=== PATIENT | male | born 1965 | race Caucasian/White ===

== ENCOUNTER 2019-04-15 05:09 | Inpatient (IN) | payer SELFPAY ==
[~2019-04-15] VITALS: Ht 170.2 cm; Wt 108.9 kg
[2019-04-15] VITALS (19 sets, daily range): BP systolic 98–160; BP diastolic 63–99; BMI 37.7
--- NOTE | ~2019-04-15 | HEMODYNAMI ---
PATIENT:SANTIAGO DALAL MEDICAL RECORD: [id number] : 67 LOCATION:[facility] ADMISSION DATE: 04/15/19 Generatedon:04/15/20199:15 Patient name: SANTIAGO DALAL Patient #: [id number] SSN: : 1965 Date of study: 04/15/2019 Page: Of Hemodynamic Procedure Report Patient Data Patient Demographics Procedure consent was obtained First Name: SANTIAGO Gender: Male Last Name: MULUGETA : 1965 Patient #: [id number] Age: 53 year(s) Race: Unknown Additional ID: [id number] Contact details [address]: [address] [place] [address] State: [place] City: [place] Zip code: [address] Past Medical History Allergies Allergen Reaction Date Comments Reported Penicillins 04/15/2019 Admission Admission Data Admission Date: 04/15/2019 Admission Time: 5:09 Admit Source: Emergency Insurance Payor: None department Height (in.): 67 BSA: 2.19 (m2) Height (cm.): 170.18 BMI: 37.67 (kg/m2) Weight (lbs.): 240.5 Weight (kg.): 109.09 Lab Results Lab Result Date: 04/15/2019 Lab Result Time: 0:00 Biochemistry Name Units Result Min Max BUN mg/dl 15 --(--*-)-- 7 18 Creatinine mg/dl 0.7 --(*---)-- 0.6 1.3 Troponin l ng/ml 1.301 --(----)-* 0 0.06 CBC Name Units Result Min Max Hematocrit % 47.4 --(-*--)-- 42 54 Hemoglobin g/dl 16.7 --(---*)-- 13.5 17.5 Platelets 10^3/l 258 --(-*--)-- 130 400 Procedure Procedure Types Cath Procedure Diagnostic Procedure [facility] w/Coronaries Sedation Charges Moderate Sedation up to 15 minutes PCI Procedure Coronary Stent Coronary Stent Initial Procedure Description Procedure Date Procedure Date: 04/15/2019 Procedure Start Time: 7:58 Procedure End Time: 9:14 Procedure Staff Name Function Quoc Birmingham MD Performing Physician Bella Gandhi RT Monitor January Sandoval RN Nurse Christy Rosa RT Scrub Procedure Data Cath Procedure Fluoroscopy Diagnostic fluoroscopy Total fluoroscopy Time: 4.1 time: 4.1 min min Diagnostic fluoroscopy Total fluoroscopy dose: dose: 1144 mGy 1144 mGy Contrast Material Contrast Material Type Amount (ml) Isovue 300 121 Entry Location Entry Primary Successful Side Size Upsize Upsize Entry Closure Succes sful Closure Location (Fr) 1 (Fr) 2 (Fr) Remarks Device Remarks Femoral Right 5 Fr 6 Fr Exoseal artery Short Estimated blood loss: 5 ml Diagnostic catheters Device Type Used For End Catheter Placement MULTIPACK JL 4.0 5Fr Left Coronary catheter Angiography MULTIPACK 3DRC 5Fr Right Coronary catheter Angiography MULTIPACK Pigtail 5 Fr Multi-vessel catheter Angiography Procedure Complications No complications Procedure Medications Medication Administration Route Dosage Oxygen etCO2 Nasal cannula 2 l/min Lidocaine 2% added to field 20 Heparin Flush Bag added to field 2 bags (1000units/500ml NS) 0.9% NaCl I.V. 100 ml/hr Versed I.V. 2 mg Fentanyl I.V. 100 mcg Versed I.V. 2 mg Heparin Bolus I.V. 54891 units Nitroglycerin IC/IA I.C. 100 mcg Integrilin (Bolus I.V. 9.5 ml 2mg/ml) Effient P.O. 60 mg Hemodynamics Rest BSA: 2.19 (m2) HGB: 16.7 (g/dl) O2 Consumption: Estimated: 272.14 (ml/min) O2 Co nsumption indexed: Estimated:124.26 (ml/min/m) Heart Rate: 84 (bpm) Pressure Samples Time Site Value (mmHg) Purpose Heart Use Rate(bpm) 8:03 AO 192/54(98) Snapshot 104 8:03 LV 214/72,70 Snapshot 110 8:04 AO 175/116(145) Pullback 109 8:04 LV 179/20,42 Pullback 109 Gradients Valve Time Site 1 Site 2 Mean SEP/DFP Peak To Heart Use (mmHg) (sec/min) Peak Rate (mmHg) (bpm) Aortic 8:04 LV AO 13 23 4 109 179/20,42 175/116(145) Calculations Valve P-P Mean Valve Index Valve Source Name Gradient Area Flow (cm2) Aortic 4 13 4 13 Snapshots Pre Cath Intra NCS Post Cath Vital Signs Time Heart Resp SPO2 etCO2 NIBP (mmHg) Rhythm Pain Status Sedation Rate (ipm) (%) (mmHg) Level (bpm) 7:47:44 85 18 96 0 149/127(133) NSR 10 (11) , 10(A) Unimaginable unspeakable 7:52:07 95 17 94 44.9 145/107(128) NSR 10 (11) , 10(A) Unimaginable unspeakable 7:56:27 97 13 97 47.9 135/107(113) NSR 10 (11) , 10(A) Unimaginable unspeakable 8:00:45 99 13 99 51 146/92(128) NSR 0 (11) , No 9(A) pain 8:05:05 104 17 100 50.9 159/114(128) NSR 0 (11) , No 9(A) pain 8:09:27 111 18 97 0 159/115(123) NSR 0 (11) , No 9(A) pain 8:13:53 110 20 94 0 132/91(117) NSR 0 (11) , No 9(A) pain 8:18:11 116 23 93 0 134/88(111) NSR 0 (11) , No 9(A) pain 8:22:29 116 16 93 2.2 129/80(108) NSR 0 (11) , No 10(A) pain 8:32:09 112 22 91 14.2 117/77(96) NSR 0 (11) , No 10(A) pain 8:48:22 107 19 93 51.7 123/70(103) NSR 0 (11) , No 10(A) pain 8:58:57 105 17 93 42.5 118/75(83) NSR 0 (11) , No 10(A) pain Medications Time Medication Route Dose Verified Delivered Reason Notes Effectiveness by by 7:52:35 Oxygen etCO2 2 Quoc Buffie used for Nasal l/min Kendall Sandoval salt washer cannula 7:52:41 Lidocaine 2% added 20ml Quoc Quoc for local to vial Kendall Birmingham MD anesthetic field 7:52:47 Heparin Flush added 2 bags Quoc Quoc used for Bag to Kendall Birmingham MD procedure (1000units/500ml field NS) 7:52:55 0.9% NaCl I.V. 100 Quoc Quoc ml/hr Kendall Birmingham MD 7:57:04 Versed I.V. 2 mg Quoc Buffie for sedation Kendall Sandoval RN 7:57:10 Fentanyl I.V. 100 Quoc Buffie for sedation mcg Kendall Sandoval RN 8:05:43 Versed I.V. 2 mg Quoc Buffie for sedation Kendall Sandoval RN 8:08:08 Heparin Bolus I.V. 10,000 Quoc Buffie for verif ied units Kendall Sandoval RN anticoagulation with dr birmingham 8:16:41 Nitroglycerin I.C. 100 Quoc Quoc for IC/IA mcg Kendall Birmingham MD vasodilation 8:21:28 Integrilin I.V. 9.5 ml Quoc Buffie for waste d (Bolus 2mg/ml) Kendall Sandoval RN antiplatelet 0.5 ml therapy of vial 8:28:11 Effient P.O. 60 mg Quoc Buffie for Kendall Sandoval RN antiplatelet therapy Procedure Log Time Note 7:26:57 Time tracking: Regular hours (M-F 7:00 - 5:00) 7:27:01 Plan of Care:Hemodynamics will remain stable., Cardiac rhythm will remain stable., Comfort level will be maintained., Respiratory function will remain adequate., Patient/ family verbilizes understanding of procedure., Procedure tolerated without complication., Recovers from procedure without complications.. 7:30:15 January Sandoval RN sent for patient. Start room use. 7:34:14 Patient allergic to Penicillins 7:35:50 Lab Result : Troponin l 1.301 ng/ml 7:35:50 Lab Result : Hemoglobin 16.7 g/dl 7:35:50 Lab Result : BUN 15 mg/dl 7:35:50 Lab Result : Creatinine 0.7 mg/dl 7:35:50 Lab Result : Hematocrit 47.4 % 7:35:50 Lab Result : Platelets 258 10^3/l 7:35:56 Admit Source: Emergency department 7:36:01 Patient Height : 67 inches 7:36:06 Patient Weight : 240.5 lbs 7:36:54 Insurance Payor : None 7:41:03 Patient received from ED to CCL 1 Alert and oriented. Tansferred to table in Supine position. 7:41:04 Warm blankets applied, and dax hugger turned on for patient comfort. 7:41:05 Correct patient and procedure confirmed by team. 7:41:06 Signed procedure consent form obtained from patient. 7:41:06 ECG and BP/O2 sat monitors applied to patient. 7:41:07 Full Disclosure recording started 7:46:27 Vital chart was started 7:47:48 Baseline sample Acquired. 7:47:54 Rhythm: sinus rhythm 7:48:02 H&P Date Dictated: 04/15/2019 New H&P dictated by physician.. 7:48:04 Pre-procedure instructions explained to patient. 7:48:04 Pre-op teaching completed and patient verbalized understanding. 7:48:05 Family in waiting room. 7:48:07 Patient NPO since Midnight. 7:48:10 Is the patient allergic to Iodine/contrast media? No. 7:48:11 Was the patient premedicated? No 7:48:12 Is patient on blood thinner?No 7:48:19 Patient diabetic? No. 7:48:26 Previous problem with sedation/anesthesia? No ? 7:48:30 Snore? Yes 7:48:31 Sleep apnea? No 7:48:32 Deviated septum? No 7:48:33 Opens mouth fully? Yes 7:48:34 Sticks out tongue? Yes 7:48:43 Airway obstruction? Yes asthma 7:48:47 Dentures? No ? 7:48:53 Pre procedure: right dorsailis pedis pulse 2+ Normal; easily identifiable; not easily obliterated 7:48:57 Pre procedure: left dorsailis pedis pulse 2+ Normal; easily identifiable; not easily obliterated 7:48:59 Patient pain scale 0/10 ?. 7:52:35 Oxygen 2 l/min etCO2 Nasal cannula was administered by January Sandoval RN; used for procedure; 7:52:41 Lidocaine 2% 20ml vial added to field was administered by Quoc Birmingham MD; for local anesthetic; 7:52:47 Heparin Flush Bag (1000units/500ml NS) 2 bags added to field was administered by Quoc Birmingham MD; used for procedure; 7:52:55 0.9% NaCl 100 ml/hr I.V. was administered by Quoc Birmingham MD; ; 7:52:58 IV patent on arrival in left forearm with 0.9% NaCl at O. 7:53:01 Lab results completed and on chart. 7:53:06 Right groin area was prepped with chlora-prep and draped in sterile fashion 7:53:07 Alarms reviewed by R. N. 7:53:07 Sharps counted by scrub and verified by R.N. 7:53:09 Physician arrived 7:53:10 --------ALL STOP TIME OUT------ 7:53:11 Final Timeout: patient, procedure, and site verified with staff and physician. All members of the team are in agreement. 7:53:13 Right groin site verified by team. 7:53:16 Maximum allowable Isovue 300 dose 300ml. Physician notified. (300ml for normal creatinines. For patients with creatinine of 1.7 or higher multiply weight(kg) x 5 divided by creatinine.) 7:53:20 Fire Safety Assessment: A--An alcohol-based skin anteseptic being used preoperatively., C--Open oxygen or nitrous oxide is being used., D--An ESU, laser, or fiber-optic light is being used. 7:53:23 Physical assessment completed. ASA score P 2 - A patient with mild systemic disease as per Quoc Birmingham MD. 7:53:28 Sedation plan: IV Moderate Sedation Medication:Versed, Fentanyl 7:55:10 Use device set Femoral Dx 7:55:11 ACIST Syringe (63396) opened to sterile field. 7:55:12 Bag Decanter (2002) opened to sterile field. 7:55:12 Medline Cath Pack ([id number]) opened to sterile field. 7:55:13 DIAGNOSTIC WIRE .035 260cm J wire (615732) opened to sterile field. 7:55:48 ACIST Hand Control (26801) opened to sterile field. 7:55:48 ACIST Manifold (94797) opened to sterile field. 7:55:49 DIAGNOSTIC Multipack 5Fr catheter set (HV7060) opened to sterile field. 7:55:49 Tegaderm 4 x 4 (1626W) opened to sterile field. 7:55:52 SHEATH 5FR Jesse (SAA456) opened to sterile field. 7:57:04 Versed 2 mg I.V. was administered by January Sandoval RN; for sedation; 7:57:10 Fentanyl 100 mcg I.V. was administered by January Sandoval RN; for sedation; 7:58:30 Procedure started. 7:58:34 Local anesthetic to right femoral artery with Lidocaine 2% by Quoc Birmingham MD.INITIAL ACCESS ONLY 8:00:28 A 5 Fr sheath was inserted into the Right Femoral artery 8:00:36 A MULTIPACK JL 4.0 5Fr catheter was advanced over the wire and used for Left Coronary Angiography. 8:00:52 LCA angiography performed. 8:00:58 Injector settings: Ml/sec: 3, Volume: 6, 8:01:02 Catheter removed. 8:01:07 A MULTIPACK 3DRC 5Fr catheter was advanced over the wire and used for Right Coronary Angiography. 8:01:44 GUIDE 6FR XBLAD 3.5 catheter ([id number]) opened to sterile field. 8:01:45 TUBING High Pressure Extension Tubing (Kendall) ([id number]) opened to sterile field. 8:01:46 BMW 300cm [place] 2 J wire ([id number]) opened to sterile field. 8:01:47 INFLATOR Merit BasixCompak (DO9051) opened to sterile field. 8:01:47 SHEATH 6FR Jesse (MIB933) opened to sterile field. 8:02:08 RCA angiography performed. 8:02:10 Injector settings: Ml/sec: 3, Volume: 6, 8:02:15 Catheter removed. 8:03:49 A MULTIPACK Pigtail 5 Fr catheter was advanced over the wire and used for Multi-vessel Angiography. 8:03:58 LV hemodynamics recorded. 8:03:59 LV gram done using SINHA 8:04:02 Injector settings: Ml/sec: 5, Volume: 15, 8:04:09 EF : 55 % 8:04:11 Catheter removed. 8:04:18 Proceeding to intervention. 8:04:24 Sheath upsized to a 6 Fr Short. 8:04:42 6 Fr xblad 3.5 guide catheter was inserted over the wire 8:04:52 bmw wire advanced. 8:05:40 DIAGNOSTIC WIRE .035 260cm J wire (107425) opened to sterile field. 8:05:43 Versed 2 mg I.V. was administered by January Sandoval RN; for sedation; 8:08:08 Heparin Bolus 10,000 units I.V. was administered by January Sandoval RN; for anticoagulation; verified with dr birmingham 8:08:55 Wire advanced across lesion. 8:11:30 Inflate balloon Inflation number: 1 A EUPHORA 2.5 x 20 Balloon ([id number]) was prepped and advanced across the Prox LAD, then inflated to 12 CONCETTA for 0:10 (min:sec). 8:13:01 Balloon removed over the wire. 8:15:05 Place stent Inflation Number: 2 A COBRA RX 3.0 X 18 Stent was prepped and advanced across the Prox LAD. The stent was deployed at 13 CONCETTA for 0:10 (min:sec). 8:16:15 Stent catheter was removed intact over wire. 8:16:41 Nitroglycerin IC/IA 100 mcg I.C. was administered by Quoc Birmingham MD; for vasodilation; 8:20:05 Wire removed. 8:20:06 Guide catheter removed. 8:20:27 Sheath removed intact; hemostasis achieved with Exoseal to the Right Femoral artery. 8:20:31 Procedure ended.(Physican Out) 8:20:45 EXOSEAL 6Fr (EX600) opened to sterile field. 8:21:00 Fluoroscopy time 04.10 minutes. 8:21:06 Fluoroscopy dose: 1144 mGy 8:21:06 Flurop Dose total: 1144 8:21:26 Contrast amount:Isovue 300 121ml. 8:21:27 Sharps counted by scrub and verified by R.N. 8:21:28 Integrilin (Bolus 2mg/ml) 9.5 ml I.V. was administered by January Sandoval RN; for antiplatelet therapy; wasted 0.5 ml of vial 8:21:32 Insertion/operative site no bleeding no hematoma. 8:21:35 Post-op/insertion site Right Femoral artery dressed using a 4 x 4 and Tegaderm. 8:21:36 Post Procedure Pulses reassessed and unchanged 8:21:39 Post procedure rhythm: unchanged. 8:21:43 Estimated blood loss: 5 ml 8:21:59 Post procedure instruction explained to patient.Patient verbalizes understanding. 8:21:59 Patient needs reinforcement of post procedure teaching. 8:22:53 Procedure type changed to Cath procedure, Diagnostic procedure, LHC, LHC w/Coronaries, Sedation Charges, Moderate Sedation up to 15 minutes, PCI procedure, Coronary Stent, Coronary Stent Initial 8:22:54 Procedure and supply charges have been captured, reviewed, submitted and are correct. 8::59 Procedure Complication : No complications 8:23:01 Vital chart was stopped 8:23:01 See physician's report for complete and final results. 8:28:11 Effient 60 mg P.O. was administered by January Sandoval RN; for antiplatelet therapy; 8:33:19 rt groin dressing c/d/i, no bleeding or hematoma noted. pt remains on procedure table. will cont to monitor. 8:48:20 rt groin dressing c/d/i, no bleeding or hematoma noted. will cont to monitor. updated family in waiting area. 9:01:57 rt groin dressing c/d/i, no bleeding or hematoma noted. room assignment to CVICU 2. 9:13:52 Report given to CVICU. 9:14:01 Patient transfered to CVICU with Stretcher. 9:14:03 Procedure ended. 9:14:03 Full Disclosure recording stopped 9:14:11 ACC-PCI Only Patient was given prescriptions, or instructed by Quoc Birmingham MD to start/continue the following medications upon discharge: Plavix 9:14:13 End room use (Document Last) Intervention Summary Intervention Notes Time ActionType Lesion and Equipment Action# Pressure Duration Attributes Used 8:11:30 Inflate Prox LAD EUPHORA 1 12 00:10 balloon 2.5 x 20 Balloon ([id number]) 8:15:05 Place stent Prox LAD COBRA RX 2 13 00:10 3.0 X 18 Stent Device Usage Item Name Manufacture Quantity Catalog Hospital Part Current Minimal Lot# / Number Charge Number Stock Stock Serial# Code ACIST Syringe Acist 1 44573 053351 101554 276606 20 (91288) Medical Coupsta Inc Bag Decanter Microtek 1 878444 40806 200601 5 () Medical Inc. Medline Cath Medline 1 [id number] 129267 81487 332341 5 Pack ([id number]) DIAGNOSTIC St [place] 2 118697 482633 545841 885522 30 WIRE .035 260cm J wire (328355) ACIST Hand Acist 1 01591 295507 032579 793370 5 Control Medical (90098) Systems Inc ACIST Manifold Acist 1 61262 039758 086060 266613 5 (89992) Medical Systems Inc DIAGNOSTIC Cardinal 1 WL8021 488496 28132 767948 30 Multipack 5Fr Health catheter set (BZ0549) Tegaderm 4 x 4 3M 1 1626W 954939 390491 858166 5 (1626W) SHEATH 5FR Terumo 1 VND247 605444 871256 382547 5 Jesse (JVU156) MULTIPACK JL Cardinal 1 039239 5 4.0 5Fr Health catheter MULTIPACK 3DRC Cardinal 1 864575 5 5Fr catheter Health GUIDE 6FR Cardinal 1 [id number] 429677 362307 695014 10 XBLAD 3.5 Health catheter ([id number]) TUBING High Merit 1 [id number] 814749 99565 746248 10 Pressure Medical Extension Tubing ([place]irmingham) (DN2912V) BMW 300cm Florentino 1 [id number] 854881 399469 041387 5 [place] 2 J Vascular wire (0551552A) INFLATOR Merit Merit 1 HQ1560 324369 788165 072205 15 BasixCompak Medical (KQ0648) SHEATH 6FR Terumo 1 KZL848 774125 897784 749843 40 Jesse (WKE315) MULTIPACK Cardinal 1 866816 5 Pigtail 5 Fr Health catheter EUPHORA 2.5 x Medtronic 1 [id number] 425990 181955 376229 5 [id number] 20 Balloon ([id number]) COBRA RX 3.0 X Celonova 1 [id number] 652654 [id number] 02241979 5 [id number] 18 stent Biosciences () EXOSEAL 6Fr Cardinal 1 EX600 130160 034401 647588 10 (EX600) Health Signature Audit [place] Stage Time Signature Unsigned Intra-Procedure 04/15/2019 Bella Gandhi 9:14:56 AM RT(R) Signatures Monitor : Bella Gandhi RT Signature : Date : Time : [address] [place] [address]
[2019-04-15] MEDS ORDERED: HYDROCODON-ACE1 EAC7 PO (05:24)
[2019-04-15] MEDS ORDERED: CLEOCIN HCL150 MG PO (05:24)
--- NOTE | 2019-04-15 05:45 | NUR ---
PT DENIES ANY RELIEF FROM GI COCKTAIL. EDP NOTIFIED.
[2019-04-15 05:52] LABS: BASOPHILS 0.3 % (0-2); EOSINOPHILS 1.8 % (0-7); HEMATOCRIT 47.4 % (42.0-54.0); HEMOGLOBIN 16.7 g/dL (13.5-17.5); IMMATURE GRANULOCYTES 0.4 % (0-5); LYMPHOCYTES 20.4 % (15-50); MCH 32.1 pg (26.0-34.0); MCHC 35.2 g/dL (31.0-37.0); MEAN PLATELET VOLUME 9.9 fL (7.4-10.4); MONOCYTES 10.5 % (2-11); NEUTROPHILS 66.6 % (40-80); PLATELET COUNT 258 10x3/uL (130-400); RBC 5.21 10x6/uL (4.20-6.10); RDW 13.5 % (11.5-14.5); WBC 14.6 10x3/uL (4.8-10.8)
[2019-04-15 06:19] LABS: ALBUMIN 3.8 g/dL (3.4-5.0); ALKALINE PHOSPHATASE 95 U/L (46-116); ALT (SGPT) 44 U/L (10-68); BILIRUBIN - TOTAL 0.52 mg/dL (0.2-1.3); CALC OSMOLALITY 276 mosm/kg (275-300); CALCIUM 9.1 mg/dL (8.5-10.1); CARBON DIOXIDE 30.1 mmol/L (21.0-32.0); CHLORIDE - SERUM 102 mmol/L (98-107); CREATININE - SERUM 0.7 mg/dL (0.6-1.3); GLUCOSE 129 mg/dL (74-106); SODIUM 137 mmol/L (136-145); UREA NITROGEN 15 mg/dL (7-18); eGFR NON AFRICAN AMERICAN > 90 mL/min (90-120)
[2019-04-15 06:22] LABS: POTASSIUM - SERUM 4.1 mmol/L (3.5-5.1)
[2019-04-15 06:37] LABS: AMYLASE - SERUM 20 U/L (25-115); CKMB 15.4 U/L (0.0-3.6); CREATINE KINASE 214 UL (21-232); LIPASE 60 U/L (73-393)
[2019-04-15 06:38] LABS: APTT 30.5 SECONDS (22.8-39.4)
[2019-04-15 06:40] LABS: PROTIME 12.7 SECONDS (11.6-15.0)
[2019-04-15 06:41] LABS: TROPONIN-I 1.301 ng/mL (0.000-0.060)
--- NOTE | 2019-04-15 06:50 | NUR ---
PATIENT COMPLAINS OF CHEST PAIN AT A 10, DRNas NOTIFIED MORPHINE 4MG IVP GIVEN PER ORDER.
--- NOTE | 2019-04-15 09:30 | NUR ---
RECEIVED PT FROM [facility]. HOOKED UP TO MONITOR. VSS. WILL CHECK FOR ORDERS AND CONTINUE TO MONITOR
--- NOTE | 2019-04-15 11:00 | NUR ---
LEFT AC IV INFILTRATED. VASCULAR ACCESS NURSE WES STARTED NEW 22 GUAGE IV TO LEFT HAND. NS INFUSING AT PRESCRIVED RATE. VSS.
--- NOTE | 2019-04-15 13:00 | NUR ---
PT RESTING IN BED C VSS. AWAE ALERT AND ORIENTED.
--- NOTE | 2019-04-15 15:00 | NUR ---
PT RESTING IN BED AWAKE ALERT AND ORIENTED C VSS. WILL CONTINUE TO MONITOR.
--- NOTE | 2019-04-15 17:00 | NUR ---
PT RESTING IN BED C VSS. OBTAINED DIET ORDER AND CALLED DIETARY TO BRING UP TRAY.
--- NOTE | 2019-04-15 19:30 | NUR ---
PT AOX4, UNLABORED RESPIRATIONS, NO S/S OF DISTRESS. DENIES PAIN AT THIS TIME. S1S2 HEARD, PERIPHERAL PULSES PRESENT. RT GROIN WITH DRSG CDI, NO S/S OF HEMATOMA AT THIS TIME. PT REPOSITIONS SELF INDEPENDENTLY. FRESH WATER AT BEDSIDE. VSS, NO COMPLAINTS. DENIES NEEDS AT THIS TIME. CALL LIGHT AND BEDSIDE TABLE WITHIN PT REACH. CPOC.
--- NOTE | 2019-04-15 20:30 | NUR ---
FAMILY AT BEDSIDE, UPDATE PROVIDED, NO QUESTIONS AT THIS TIME. DENIES NEEDS.
--- NOTE | 2019-04-15 22:48 | NUR ---
PT RESTING QUIETLY WITH UNLABORED RESPIRATIONS. VSS, PERIPHERAL PULSES PRESENT. NO C/O PAIN. DENIES NEEDS. CALL LIGHT AND BEDSIDE TABLE WITHIN PT REACH. CPOC.
--- NOTE | 2019-04-15 23:34 | NUR ---
REASSESSMENT COMPLETE, NO NEW CHANGES AT THIS TIME. RIGHT GROIN WITH DRSG CDI, NO S/S OF HEMATOMA AT THIS TIME. PERIPHERAL PULSES PRESENT. REPOSITIONS SELF INDEPENDENTLY. NO S/S OF PAIN OR DISTRESS. CALL LIGHT AND BEDSIDE TABLE WITHIN PT REACH. CPOC.
[2019-04-16] VITALS (14 sets, daily range): BP systolic 90–120; BP diastolic 56–83; Ht 170.2 cm; Wt 108.9 kg
--- NOTE | 2019-04-16 03:30 | NUR ---
REASSESSMENT COMPLETE, NO NEW CHANGES AT THIS TIME. R GROIN WITH NO S/S OF HEMATOMA AT THIS TIME, PERIPHERAL PULSES PRESENT. DENIES PAIN. VSS, DENIES NEEDS. CALL LIGHT AND BEDSIDE TABLE WITHIN PT REACH. CPOC.
--- NOTE | 2019-04-16 05:30 | NUR ---
PT RESTING QUIETLY WITH VSS, NO S/S OF ACUTE DISTRESS OR PAIN NOTED. REPOSITIONS SELF INDEPENDENTLY. CALL LIGHT AND BEDSIDE TABLE WITHIN PT REACH. CPOC.
--- NOTE | 2019-04-16 07:00 | NUR ---
PT RESTING IN BED AWAKE ALERT AND ORIENTED. VSS. RIGHT HAND IV SALINE LOCKED. RIGHT GROIN DRESSING FROM HEART CATH CDI. PEDAL PULSES PALPABLE BILATERALLY. NO COMPLAINTS. WILL CONTINUE TO MONITOR
--- NOTE | 2019-04-16 09:30 | NUR ---
CALLED REPORT TO MED 2 NURSE TAKING PATIENT.
--- NOTE | 2019-04-16 10:30 | NUR ---
RECEIVED FROM ICU. HE IS ALERT AND ABLE TO VOICE NEEDS. TELEMENTRY SHOWS SR IN 80'S. BBS CLEAR RESP EVEN WITHOUT LABOR ORIENT TO ROOM AND CALL LIGHT. I ASKED THE FIRST TIME HE GOT UP OUT OF BED TO GO TO BATHROOM TO LET ME ASSIST AND HE DID AGREE. SALINE LOCK X2 INTACT. NON-SKID SOCKS IN PLACE CL IN REACH. H2O WAS SUPPLIED. PEDAL PULSES EQUAL AND PALPABLE WITH NO EDEMA. DENIES CHEST PAIN.
--- NOTE | 2019-04-16 11:46 | NUR ---
HE IS UP TO TAKE A SHOWER WITH HIS IN THE ROOM. DENIES ANY C/P OR ANY OTHER ISSUES. SALINE LOCKS WERE COVERED FOR PROTECTION.
--- NOTE | 2019-04-16 13:23 | NUR ---
IN ROOM WATCHING TV UP IN CHAIR. HE AMBULATED AROUND NURSES STATION WITH HIS AT SIDE AND TOLERATED IT WELL. MED GIVEN PER ORDERS DENIES ANY C/P OR NEEDS AT THIS TIME.
--- NOTE | 2019-04-16 15:20 | NUR ---
LYING IN BED WATCHING TV. OFFERS NOT C/O. CL IN REACH STATED WILL CALL IF HE NEEDS ANYTHING. RESP EVEN WITHOUT LABOR.
--- NOTE | 2019-04-16 17:26 | NUR ---
SITTING UP IN CHAIR TO EAT SUPPER. TOOK MEDS WITH NO C/O VOICED CL IN REACH
--- NOTE | 2019-04-16 18:20 | NUR ---
NO C/O CL IN REACH CONTINUE IN SR
--- NOTE | 2019-04-16 19:10 | NUR ---
PT AAO, UP AD ALVARO. PT DENIES ANY NEEDS. NO S/S OF DISTRESS. NAME AND DATE PLACED ON BOARD. PT WILL CALL FOR ASSIST WHEN NEEDED. WILL CPOC
--- NOTE | 2019-04-16 21:00 | NUR ---
PT IS AAO. UP AD ALVARO. NORCO GIVEN FOR TOOTH PAIN. ANTIBIOTIC GIVEN ORDERED. PT DENIES ANY QUESTIONS OR CONCERNS. PT WILL CALL FOR ASSIST WHEN NEEDED. WILL CPCO
[2019-04-17] VITALS: BP 112/78
--- NOTE | 2019-04-17 01:00 | NUR ---
PT UP WALKING IN UNIT. GAIT STEADY. PT AAO DENIES ANY NEEDS. NO S/S OF DISTRESS. WILL CPOC
[2019-04-17 04:00] VITALS: BP 123/80
--- NOTE | 2019-04-17 05:11 | NUR ---
PT ASLEEP. AROUSES TO VERBAL STIMULI, RESP EVEN AND UNLABORED. BEDLOW AND CALL LIGHT IN REACH. WILL CPOC
--- NOTE | 2019-04-17 07:10 | NUR ---
REPORT RECEIVED FROM SLIDING JOINT MAKER AND PATIENT CARE ASSUMED. PATIENT LAYING IN BED ON BACK AWAKE, ALERT AND ORIENTED X 4. PATIENT IS STABLE AND VSS. PATIENT DENIES ANY NEEDS OR PAIN. WILL CONTINUE WITH PLAN OF CARE. SR UP X 2 BED IN LOW POSITION AND CALL LIGHT IN REACH.
[2019-04-17 07:36] VITALS: BP 95/69
--- NOTE | 2019-04-17 08:12 | NUR ---
PHYSICIAN TO CHECK LIPID PROFILE AT F/U APPT AND ORDER STATIN. CORE MEASURE WAS ADDRESSED.
[2019-04-17] MEDS ORDERED: COREG 3.1253.125 MG PO (08:17)
[2019-04-17] MEDS ORDERED: EFFIENT10 MG PO (08:17)
[2019-04-17] MEDS ORDERED: LISINOPRIL2.5 MG PO (08:17)
[2019-04-17] MEDS ORDERED: BAYER CHEWABLE81 MG PO (08:18)
--- NOTE | 2019-04-17 09:25 | NUR ---
ORDERS TO DISCHARGE HIM TO HOME. EXPLAINED DISCHARGE INSTRUCTIONS TO PATIENT AND WHO IS PRESENT AT BEDSIDE AND THEY BOTH VERBALIZED UNDERSTANDING AND AWARE OF F/U APPOINTMENT. RESP EVEN WITHOUT LABOR. VSS. SALINE LOCK X2 D/C WITH CATH INTACT. MINIMAL BLEEDING FROM LEFT A/C CONTROLLED WITH PRESSURE APPLIED. TELEMENTRY RETURNED TO STATION. HE REFUSED W/C TRANSPORT.
--- NOTE | 2019-04-17 09:26 | MORECARE ---
CASE MANAGEMENT DISCHARGE SUMMARY PATIENT: SANTIAGO DALAL UNIT: [id number] ADM DATE: 04/15/19 AGE: 53 : 67 SEX: M ROOM/BED: D.2372 AUTHOR: MANJIT CUNNINGHAM PHYSICIAN: REFERRING PHYSICIAN: TYLER WINCHESTER M.D. DATE OF SERVICE: 04/17/19 Discharge Plan Patient Name: SANTIAGO DALAL [facility] [facility] 1965 Planned Disposition: Home Anticipated Discharge Date: 04/17/19 Discharge Date: Expected LOS: 2 Initial Reviewer: [email or web address] Initial Review Date: 04/17/2019 Generated: 04/17/19 10:26 am Patient Name: SANTIAGO DALAL Page [id number] at 0926 All edits/amendments must be made on the electronic document DICTATION DATE: 04/17/19924 SWEAT BOX ATTENDANT: RUBY 04/17/19924 RPT#: [id number] DC DATE: STATUS: ADM IN [facility] [address] [place] [address] END OF REPORT
--- NOTE | 2019-04-17 09:33 | MORECARE ---
CASE MANAGEMENT DISCHARGE SUMMARY PATIENT: SANTIAGO DALAL UNIT: [id number] ADM DATE: 04/15/19 AGE: 53 : 67 SEX: M ROOM/BED: D.8759 AUTHOR: [facility] PHYSICIAN: REFERRING PHYSICIAN: TYLER WINCHESTER M.D. DATE OF SERVICE: 04/17/19 Discharge Plan Patient Name: SANTIAGO DALAL Facility: [facility]:Sebastian : 1965 Planned Disposition: Home Anticipated Discharge Date: 04/17/19 Discharge Date: Expected LOS: 2 Initial Reviewer: [email or web address] Initial Review Date: 04/17/2019 Generated: 04/17/19 10:33 am Comments DCP- Discharge Planning Updated by [email or web address]: Daniel Hannon on 04/17/19 8:[address] Patient Name: SANTIAGO DALAL Admission Status: ER Accout number: [id number] Admission Date: 04-15-2019 : 1965 Admission Diagnosis: Attending: TYLER WINCHESTER Current LOS: 2 Anticipated DC Date: 04-17-2019 Planned Disposition: Home Primary Insurance: UNINSURED DISCOUNT PLAN Discharge Planning Comments: CM MET WITH PT AND SPOUSE IN ROOM TO DISCUSS DISCHARGE PLANNING AND NEEDS. SANTIAGO DALAL provided verbal consent to discuss current and ongoing needs with/in the presence of: SPOUSE, CODY. PT REPORTS LIVING AT HOME INDEPENDENTLY WITH HIS . PT HAS A CANE WITH NO MEDICAL EQUIPMENT PROVIDER PREFERENCE. PT HAS NO OUTSIDE SERVICES ASSISTING IN THE HOME. CM DISCUSSED AVAILABILITY OF HOME HEALTH, REHAB SERVICES AND MEDICAL EQUIPMENT. PT DENIES DISCHARGE NEEDS, REPORTS HIS IS HERE TO PICK HIM UP FOR DISCHARGE HOME. [facility] INFORMATION PROVIDED AND DISCUSSED. 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 CM PROVIDED 2 PRESCRIPTION DISCOUNT CARDS AND EDUCATED PT ON SHOPPING PHARMACIES TO GET BE[employer] PAY PRICES ON [employer] DRU[employer] UNTIL HIS INSURANCE COMES INTO EFFECT. PT DENIES DISCHARGE NEEDS. MANAGER CLINICAL SERVICES NURSE NOTIFIED. Tech Ed/Woodshop Teacher: Daniel Hannon DCPIA - Discharge Planning Initial Assessment Updated by [email or web address]: Daniel Hannon on 04/17/19 9:27 am * Is the patient Alert and Oriented? Yes * How many steps to enter\exit or inside your home? * PCP NONE [facility] REFERRED * Pharmacy [facility]. * Preadmission Environment Home with Family * ADLs Independent * Equipment Cane * Other Equipment NO MEDICAL EQUIPMENT PROVIDER PREFERENCE * List name and contact numbers for known caregivers / representatives who currently or will assist patient after discharge: CODY DALAL, SPOUSE, * Verbal permission to speak to the caregivers and representatives has been obtained from the patient. Yes * Community resources currently utilized None * Please name any agencies selected above. NONE * Additional services required to return to the preadmission environment? No * Can the patient safely return to the preadmission environment? Yes * Has this patient been hospitalized within the prior 30 days at any hospital? No Last DP export: 04/17/19 8:26 a Patient Name: SANTIAGO DALAL Page [id number] at 0933 All edits/amendments must be made on the electronic document DICTATION DATE: 04/17/19931 NEWS CAMERAMAN: RUBY 04/17/19931 RPT#: [id number] DC DATE: STATUS: ADM IN [facility] [address] [place] [address] END OF REPORT
--- NOTE | 2019-04-17 09:45 | NUR ---
ORDER RECEIVED FOR DC. PATIENT IS STABLE AND VSS. PATIENT DENIES ANY NEEDS OR PAIN. WRITTEN AND VERBAL INSTRUCTIONS GIVEN TO PATIENT AND VERBALIZED UNDERSTANDING AND SIGNED DC INSTRUCTIONS. PATIENT REFUSED WC. AMBULATED TO FRONT DOOR TO PRIVATE VEHICLE DRIVEN BY FAMILY MEMBER.
== END 2019-04-17 09:45 | disposition home or self-care (01) | DRG 249 ==
LOC: D.ER 05:09 → D.CATH 05:09 → EDSTATUS 06:49 → D.CVICU 09:31 → D.CATH 09:42 → D.M2 09:43 → D.CVICU 09:43 → D.M2 04-16 09:58
PROVIDERS: Family Medicine; ADMIT Internal Medicine Cardiovascular Disease; ATTEND Internal Medicine Cardiovascular Disease
PROC: B2111ZZ Fluoroscopy of Multiple Coronary Arteries using Low Osmolar Contrast (ICD-10-PCS; 2019-04-15)
PROC: B2151ZZ Fluoroscopy of Left Heart using Low Osmolar Contrast (ICD-10-PCS; 2019-04-15)
PROC: 02703DZ Dilation of Coronary Artery, One Artery with Intraluminal Device, Percutaneous Approach (ICD-10-PCS; principal; 2019-04-15 07:30)
PROC: 4A023N7 Measurement of Cardiac Sampling and Pressure, Left Heart, Percutaneous Approach (ICD-10-PCS; 2019-04-15 07:30)
DX: I21.4 Non-ST elevation (NSTEMI) myocardial infarction (principal); I25.110 Atherosclerotic heart disease of native coronary artery with unstable angina pectoris; I10 Essential (primary) hypertension; F17.210 Nicotine dependence, cigarettes, uncomplicated

== ENCOUNTER → 2019-06-23 13:38 | Outpatient (CLI) | payer BC ==
[2019-04-16 09:15] VITALS: BMI 37.6
[~2019-06-23 13:38] MED LIST: BAYER CHEWABLE81 MG PO; CLEOCIN HCL150 MG PO; COREG 3.1253.125 MG PO; EFFIENT10 MG PO; HYDROCODON-ACE1 EAC7 PO; LISINOPRIL2.5 MG PO
== END | disposition home or self-care (01) ==
LOC: D.HCCARDIO 13:38
PROVIDERS: ATTEND Internal Medicine Cardiovascular Disease
DX: I42.9 Cardiomyopathy, unspecified (principal)

== ENCOUNTER → 2019-07-06 16:51 | Outpatient (CLI) | payer BC ==
[2019-04-16 09:15] VITALS: BMI 37.6
[2019-07-06 18:54] LABS: CHOL - HDL RATIO 2.9 ratio (2.3-4.9); LDL-HDL RATIO 1.5 ratio (1.5-3.5)
== END | disposition home or self-care (01) ==
LOC: D.LABREF 16:51
PROVIDERS: ATTEND Nurse Practitioner
DX: I25.10 Atherosclerotic heart disease of native coronary artery without angina pectoris (principal); I10 Essential (primary) hypertension

== ENCOUNTER → 2019-08-24 10:00 | Outpatient (CLI) | payer BC ==
[2019-04-16 09:15] VITALS: BMI 37.6
== END | disposition home or self-care (01) ==
LOC: D.RAD 10:00
PROVIDERS: ATTEND Pain Medicine Interventional Pain Medicine
DX: M25.561 Pain in right knee (principal); M54.6 Pain in thoracic spine